=== PATIENT | female | born 1970 | race Caucasian/White ===

== ENCOUNTER 2017-04-02 12:29 | Emergency (ER) | payer OTHER ==
[~2017-04-02] VITALS: Ht 149.9 cm; Wt 62.6 kg
[2017-04-02 12:29] VITALS: BP 114/88
[2017-04-02] MEDS ORDERED: CLIN150C14 PO (13:05)
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
[2017-04-02] MEDS ORDERED: CLINDAMYCIN HCL 150 MG CAPSULE PO ONE (13:15)
== END 2017-04-02 13:16 | disposition home or self-care (01) ==
LOC: ER 12:29
DX: K04.7 Periapical abscess without sinus (principal); Z88.1 Allergy status to other antibiotic agents
CPT/HCPCS: 99283

== ENCOUNTER → 2020-02-12 | Outpatient (CLI) | payer OTHER ==
[~2020-02-12] MED LIST: CLIN150C14 PO
--- NOTE | 2020-02-12 13:33 | RAD ---
INDICATION: Follow-up status post fusion COMPARISON: None. IMPRESSION: Cervical spine: 2 views obtained. Anterior spinal fusion changes with plate and screws. Plate is seen at the C4-5 and C5-C6 level with screws seen at C4-C5 and C6 without screws seen at the inferior aspect of the plate at C4-5 with a lucency in the vertebral body which could be secondary to a prior tract. There is some fullness of soft tissues at the tongue base which could be from prominent lingual tonsils. No acute fracture is visualized. Electronically signed by: Stephane Christine MD (02/12/2020 1:30 PM) [id number]
== END | disposition home or self-care (01) ==
LOC: RAD 13:02
PROVIDERS: ATTEND Neurological Surgery
DX: Z98.1 Arthrodesis status (principal)
CPT/HCPCS: 72040

== ENCOUNTER → 2020-06-27 | Outpatient (CLI) | payer OTHER ==
--- NOTE | 2020-06-27 11:12 | RAD ---
DATE: 06/27/2020 8:15 AM EXAM: DIGITAL SCREEN BILAT W/CAD HISTORY: Screening COMPARISON: None available Bilateral full field craniocaudal and mediolateral oblique images were obtained using digital technique. This study was interpreted with the benefit of Computerized Aided Detection (CAD). FINDINGS: Breast Density: SCATTERED The breast parenchyma shows scattered fibroglandular densities. Breast parenchyma level B The left mammogram is negative. Middle third lateral right breast at the approximate 9:00 position 6 cm from the nipple reveals an oval, 13 mm dense mass with obscured margins. IMPRESSION: Right breast mass, findings for which additional imaging is advised. BI-RADS CATEGORY: 0 INCOMPLETE: NEEDS ADDITIONAL IMAGING EVALUATION AND/OR PRIOR MAMMOGRAMS FOR COMPARISON. RECOMMENDED FOLLOW-UP: ADD ADDITIONAL IMAGING The patient will be contacted to return for additional imaging and a supplemental report will follow. PQRS compliance statement: Patient information was entered into a reminder system with a target due date for the next mammogram. Mammography is a sensitive method for finding small breast cancers, but it does not detect them all and is not a substitute for careful clinical examination. A negative mammogram does not negate a clinically suspicious finding and should not result in delay in biopsying a clinically suspicious abnormality. "Our facility is accredited by the [employer] Mammography Program."
== END | disposition home or self-care (01) ==
LOC: MAMMO 08:06
PROVIDERS: ATTEND Family Medicine
DX: Z12.31 Encounter for screening mammogram for malignant neoplasm of breast (principal); N64.89 Other specified disorders of breast
CPT/HCPCS: 77067

== ENCOUNTER → 2020-07-03 | Outpatient (CLI) | payer OTHER ==
--- NOTE | 2020-07-03 14:08 | RAD ---
Examination: Limited right breast ultrasound. INDICATION: Screening recall for right breast mass. COMPARISON: Mammograms of 12/27/2014, 02/05/2019 and 06/27/2020 TECHNIQUE: Grayscale and color Doppler imaging of the right breast in the area of mammographic interest was performed. Spectral Doppler imaging was also used. FINDINGS: At the right 9:00 position 5 cm from the nipple, a 9 mm isoechoic oval parallel orientation mixed solid and cystic mass with microlobulated margins and internal venous flow is identified that correlates in size shape and position with the mammographic mass recalled from screening. No right axillary adenopathy. IMPRESSION: Suspicious complex solid and cystic 9 mm mass in the lateral middle third right breast. Ultrasound-guided right breast core needle biopsy recommended. agricultural research technologist notified the patient at my request and on my behalf prior to her discharge from the imaging suite. Report also telephoned to patient's referring provider Dr. Ely Alicea RN, took the report on her behalf at 1:56 PM on 07/03/2020. BI-RADS Category 4 Findings suspicious for malignancy Biopsy recommended
== END ==
LOC: US 12:57
PROVIDERS: ATTEND Family Medicine
DX: N60.01 Solitary cyst of right breast (principal)
CPT/HCPCS: 76641

== ENCOUNTER → 2020-09-22 | Outpatient (CLI) | payer OTHER ==
--- NOTE | 2020-09-22 10:43 | RAD ---
LUMBAR SPINE 2-3V DATE: 09/22/2020 12:00 AM INDICATION: LOW BACK PAIN COMPARISON: None. FINDINGS: Five non-rib bearing lumbar-type vertebral bodies are present. Bones/Alignment: No evidence of acute compression fracture. 4 mm anterolisthesis at L5-S1 due to L5 pars defects. Joints: Mild degenerative disc disease. Lower lumbar facet arthropathy. Miscellaneous: None. IMPRESSION: Mild lumbar spondylosis. Grade 1 anterolisthesis at L5-S1 due to L5 pars defects Electronically signed by: Dimitri Cruz MD (09/22/2020 10:40 AM) [id number]
== END ==
LOC: DXRAD 10:05
PROVIDERS: ATTEND Family Medicine
DX: M47.816 Spondylosis without myelopathy or radiculopathy, lumbar region (principal); M43.17 Spondylolisthesis, lumbosacral region
CPT/HCPCS: 72100